=== PATIENT | female | born 1945 | race Caucasian/White ===

== ENCOUNTER 2017-05-12 07:50 | Emergency (ER) | payer MEDICARE, MEDICAID ==
[~2017-05-12] VITALS: Ht 162.6 cm; Wt 90.0 kg
[~2017-05-12 07:50] MED LIST: ASPI-1236; ASPI-867 PO; CLOP75TA16; CLOP75TA16 PO; COR6; DONE10TA11; ERTAPENEM IV; GLYB2.5T4; LEVO75CA2; LYR25; NORVASC PO; PARO-66; SITA25TA3; VIC
[2017-05-12] MEDS ORDERED: ACETAMINOPHEN 325MG TABLET PO ONE (09:15)
[2017-05-12 09:26] LABS: CLARITY URINE CLEAR (CLEAR); COLOR URINE YELLOW (YELLOW); KETONES URINE NEGATIVE (NEGATIVE); LEUKOCYTE ESTERASE URINE NEGATIVE (NEGATIVE); NITRITE URINE NEGATIVE (NEGATIVE); OCCULT BLOOD URINE NEGATIVE (NEGATIVE); PH URINE 5.5 (4.5-8.0); PROTEIN URINE NEGATIVE (NEGATIVE); SPECIFIC GRAVITY URINE 1.009 (1.005-1.030); UROBILINOGEN URINE 0.2 E.U./dL (0.2-1.0)
[2017-05-12 09:51] LABS: BASOPHILS % 1.2 % (0.0-2.0); EOSINOPHILS % 3.5 % (0.0-5.0); HEMATOCRIT. 40.9 % (36.0-48.0); HEMOGLOBIN. 13.9 g/dL (12.0-16.0); LYMPHOCYTES % 19.7 % (20.0-50.0); MEAN CORPUSCULAR HEMOGLOBIN 29.6 pg (28.0-32.0); MEAN CORPUSCULAR VOLUME 87.4 fL (81.0-99.0); MEAN PLATELET VOLUME 8.2 fl (7.4-10.4); MONOCYTES % 5.9 % (2.0-8.0); NEUTROPHILS % 69.7 % (40.0-76.0); PLATELET 331 x1000/uL (130-400); RED BLOOD CELL COUNT 4.69 mill/uL (4.2-5.4); RED CELL DISTRIBUTION WIDTH 13.1 % (11.6-14.6)
[2017-05-12 09:53] LABS: CHLORIDE 106 mEq/L (98-107); ETHANOL BLOOD < 10 mg/dL
[2017-05-12 09:54] LABS: PROTHROMBIN TIME 10.7 sec (9.4-11.6)
[2017-05-12 09:59] LABS: TROPONIN I < 0.02 ng/mL (0.00-0.04)
[2017-05-12 10:07] LABS: *AMPHETAMINES SCREEN URINE NEGATIVE (NEGATIVE); *BARBITURATES SCREEN URINE NEGATIVE (NEGATIVE); *BENZODIAZEPINES SCREEN URINE NEGATIVE (NEGATIVE); *COCAINE SCREEN URINE NEGATIVE (NEGATIVE)
[2017-05-12 10:08] LABS: CANNABINOID URINE SCREEN NEGATIVE (NEGATIVE); METHADONE URINE SCREEN NEGATIVE (NEGATIVE); OPIATES URINE SCREEN NEGATIVE (NEGATIVE); PHENCYCLIDINE URINE SCREEN NEGATIVE (NEGATIVE)
[2017-05-12 12:10] VITALS: BP 171/83
[2017-05-14] MEDS ORDERED: RISP0.2514 PO (17:48)
[2017-05-14] MEDS ORDERED: METF10002 PO (17:48)
[2017-05-14] MEDS ORDERED: GLIM1TAB2 PO (17:48)
[2017-05-14] MEDS ORDERED: REPA1TAB5 PO (17:48)
[2017-05-14] MEDS ORDERED: CARV6.2548 PO (17:48)
== END 2017-05-12 12:59 | disposition home or self-care (01) ==
LOC: ER 08:05
DX: R51 Headache (principal); R11.2 Nausea with vomiting, unspecified; E78.00 Pure hypercholesterolemia, unspecified; E11.65 Type 2 diabetes mellitus with hyperglycemia; Z86.73 Personal history of transient ischemic attack (TIA), and cerebral infarction without residual deficits; Z79.82 Long term (current) use of aspirin; Z79.01 Long term (current) use of anticoagulants
CPT/HCPCS: 36415; 70450; 71045; 80053; 80305; 81003; 83880; 84484; 85025; 85610; 93005; 99285; G0482

== ENCOUNTER 2017-05-17 20:25 | Inpatient (IN) | payer MEDICARE, MEDICAID ==
[~2017-05-17] VITALS: Ht 170.2 cm; Wt 80.7 kg
[2017-05-17 20:25] VITALS: BP_SYST 170; BP_SYST 176; BP_DIAS 68
[~2017-05-17 20:25] MED LIST changes: +CARV6.2548 PO; +GLIM1TAB2 PO; +METF10002 PO; +REPA1TAB5 PO; +RISP0.2514 PO
[2017-05-17 21:00] VITALS: BP 176/68
[2017-05-17] MEDS ORDERED: DEXTROSE 50% WATER 50ML SYRINGE IV PRN (22:30)
[2017-05-17] MEDS ORDERED: DOCUSATE SODIUM 100MG CAPSULE PO PRN (22:30)
[2017-05-17] MEDS ORDERED: NITROGLYCERIN 0.4MG TABLET SL SL PRN (22:30)
[2017-05-17] MEDS ORDERED: TRAMADOL 50MG TABLET PO PRN (22:30)
[2017-05-17] MEDS ORDERED: IPRATROPIUM/ALBUTEROL 0.5-3(2.5)MG/3ML NEB HHN PRN (22:30)
[2017-05-17] MEDS ORDERED: GUAIFENESIN 200MG/10ML SUGAR FREE UDC PO PRN (22:30)
[2017-05-17] MEDS ORDERED: ONDANSETRON HCL 4MG/2ML VIAL IV PRN (22:30)
[2017-05-17] MEDS ORDERED: MAGNESIUM/ALUMINUM HYDROXIDE/SIMETHICONE 30ML UDC PO PRN (22:30)
[2017-05-17] MEDS ORDERED: ZOLPIDEM TARTRATE 5MG TABLET PO PRN (22:30)
[2017-05-17] MEDS ORDERED: ACETAMINOPHEN 325MG TABLET PO PRN (22:30)
[2017-05-17] MEDS ORDERED: MORPHINE SULFATE 4 MG/ML CPJ (NOT FOR IM USE) IV PRN (23:38)
[2017-05-18 01:59] VITALS: BP 140/74
[2017-05-18] MEDS ORDERED: CEFTRIAXONE 1 G PREMIX 50 ML IV SCH (04:00)
[2017-05-18] MEDS: BLOOD SUGAR DIAGNOSTIC STRIP TEST SCH ×4 (06:28→21:15)
[2017-05-18] MEDS: LEVOTHYROXINE SODIUM 75MCG TABLET PO SCH (06:41)
[2017-05-18] MEDS: LACTULOSE 20G/30ML UDC PO SCH ×3 (06:41→22:00)
[2017-05-18] MEDS: INSULIN LISPRO 100 UNITS/ML SUBCUT SCH ×4 (06:46→21:42)
[2017-05-18 08:00] VITALS: BP 153/61
[2017-05-18] MEDS ORDERED: NA PHOS,M-B/NA PHOS,DI-BA ENEMA 118ML PR PRN (09:00)
[2017-05-18] MEDS: CLOPIDOGREL 75MG TABLET PO SCH (09:25)
[2017-05-18] MEDS: ASPIRIN 325MG EC TABLET PO SCH (09:26)
[2017-05-18] MEDS: CARVEDILOL 3.125 MG TABLET PO SCH ×2 (09:26→21:36)
[2017-05-18] MEDS: ENOXAPARIN 40MG/0.4ML SYR SUBCUT SCH (09:27)
[2017-05-18] MEDS: FAMOTIDINE 20MG/2ML VIAL IV SCH (09:27)
[2017-05-18] MEDS ORDERED: LEVOFLOXACIN 250MG TABLET PO SCH (11:00)
[2017-05-18] MEDS: CLONIDINE 0.1MG TABLET PO PRN (11:49)
[2017-05-18] MEDS: LISINOPRIL 20MG TABLET PO SCH ×2 (11:49→21:36)
[2017-05-18 13:24] VITALS: BP 137/64
[2017-05-18 20:00] VITALS: BP 138/69
[2017-05-18] MEDS: ATORVASTATIN CALCIUM 10MG TABLET PO SCH (21:36)
[2017-05-19] MEDS: BLOOD SUGAR DIAGNOSTIC STRIP TEST SCH ×5 (06:13→21:20)
[2017-05-19] MEDS: LEVOTHYROXINE SODIUM 75MCG TABLET PO SCH (06:13)
[2017-05-19] MEDS: LACTULOSE 20G/30ML UDC PO SCH ×3 (06:13→21:21)
[2017-05-19] MEDS: INSULIN LISPRO 100 UNITS/ML SUBCUT SCH ×4 (06:20→21:43)
[2017-05-19 08:00] VITALS: BP 164/59
[2017-05-19 08:19] LABS: BASOPHILS % 0.6 % (0.0-2.0); EOSINOPHILS % 5.2 % (0.0-5.0); HEMATOCRIT. 38.7 % (36.0-48.0); LYMPHOCYTES % 29.7 % (20.0-50.0); MEAN CORPUSCULAR HEMOGLOBIN 29.5 pg (28.0-32.0); MEAN CORPUSCULAR VOLUME 87.9 fL (81.0-99.0); MEAN PLATELET VOLUME 8.3 fl (7.4-10.4); MONOCYTES % 9.2 % (2.0-8.0); NEUTROPHILS % 55.3 % (40.0-76.0); PLATELET 306 x1000/uL (130-400); RED CELL DISTRIBUTION WIDTH 13.4 % (11.6-14.6)
[2017-05-19] MEDS: ASPIRIN 325MG EC TABLET PO SCH (08:40)
[2017-05-19] MEDS: CARVEDILOL 3.125 MG TABLET PO SCH ×2 (08:41→21:20)
[2017-05-19] MEDS: CLOPIDOGREL 75MG TABLET PO SCH (08:42)
[2017-05-19] MEDS: LISINOPRIL 20MG TABLET PO SCH ×2 (08:42→21:20)
[2017-05-19] MEDS: ENOXAPARIN 40MG/0.4ML SYR SUBCUT SCH (08:43)
[2017-05-19] MEDS: FAMOTIDINE 20MG/2ML VIAL IV SCH (09:00)
[2017-05-19 09:47] LABS: CHLORIDE 110 mEq/L (98-107)
[2017-05-19 10:11] LABS: PREALBUMIN 18.3 mg/dL (20.0-40.0)
[2017-05-19] MEDS: FAMOTIDINE 20MG TABLET PO SCH (12:40)
[2017-05-19 19:41] LABS: CLARITY URINE CLEAR (CLEAR); COLOR URINE YELLOW (YELLOW); KETONES URINE TRACE (NEGATIVE); LEUKOCYTE ESTERASE URINE 1+ (NEGATIVE); NITRITE URINE NEGATIVE (NEGATIVE); OCCULT BLOOD URINE NEGATIVE (NEGATIVE); PH URINE 5.5 (4.5-8.0); PROTEIN URINE TRACE (NEGATIVE); SPECIFIC GRAVITY URINE 1.025 (1.005-1.030)
[2017-05-19 20:00] VITALS: BP 159/60
[2017-05-19] MEDS: ATORVASTATIN CALCIUM 10MG TABLET PO SCH (21:20)
[2017-05-20] MEDS: BLOOD SUGAR DIAGNOSTIC STRIP TEST SCH ×4 (06:18→20:16)
[2017-05-20] MEDS: LACTULOSE 20G/30ML UDC PO SCH ×2 (06:36→14:00)
[2017-05-20] MEDS: LEVOTHYROXINE SODIUM 75MCG TABLET PO SCH (06:36)
[2017-05-20] MEDS: INSULIN LISPRO 100 UNITS/ML SUBCUT SCH ×4 (06:37→21:46)
[2017-05-20 07:23] LABS: BASOPHILS % 0.5 % (0.0-2.0); EOSINOPHILS % 5.8 % (0.0-5.0); HEMATOCRIT. 37.9 % (36.0-48.0); MEAN CORPUSCULAR VOLUME 87.7 fL (81.0-99.0); MEAN PLATELET VOLUME 8.2 fl (7.4-10.4); NEUTROPHILS % 55.7 % (40.0-76.0); PLATELET 317 x1000/uL (130-400); RED BLOOD CELL COUNT 4.32 mill/uL (4.2-5.4); RED CELL DISTRIBUTION WIDTH 12.9 % (11.6-14.6)
[2017-05-20 08:15] LABS: PHOSPHORUS 4.4 mg/dL (2.5-4.9)
[2017-05-20 08:28] VITALS: BP 130/61
[2017-05-20 08:28] LABS: FOLIC ACID (FOLATE) SERUM 16.1 ng/mL (>5.38)
[2017-05-20] MEDS: CLOPIDOGREL 75MG TABLET PO SCH (08:38)
[2017-05-20] MEDS: ASPIRIN 325MG EC TABLET PO SCH (08:38)
[2017-05-20] MEDS: ENOXAPARIN 40MG/0.4ML SYR SUBCUT SCH (08:38)
[2017-05-20] MEDS: FAMOTIDINE 20MG TABLET PO SCH (08:38)
[2017-05-20] MEDS: CARVEDILOL 3.125 MG TABLET PO SCH ×2 (08:38→20:10)
[2017-05-20] MEDS: LISINOPRIL 20MG TABLET PO SCH ×2 (08:39→20:11)
[2017-05-20] MEDS: CYANOCOBALAMIN 1000MCG/ML VIAL IM SCH (09:41)
[2017-05-20] MEDS ORDERED: LACTULOSE 20G/30ML UDC PO PRN (16:30)
[2017-05-20 20:00] VITALS: BP 171/76
[2017-05-20] MEDS: ATORVASTATIN CALCIUM 10MG TABLET PO SCH (20:11)
[2017-05-21] MEDS: LEVOTHYROXINE SODIUM 75MCG TABLET PO SCH (06:42)
[2017-05-21] MEDS: BLOOD SUGAR DIAGNOSTIC STRIP TEST SCH ×4 (06:44→21:13)
[2017-05-21] MEDS ORDERED: MIDAZOLAM HCL 2 MG/2 ML VIAL ONE (07:38)
[2017-05-21] MEDS ORDERED: FENTANYL CITRATE/PF 50MCG/ML 2ML VIAL ONE (07:38)
[2017-05-21] MEDS ORDERED: PROPOFOL 200MG/20ML VIAL IV ONE (07:38)
[2017-05-21] MEDS ORDERED: SUCCINYLCHOLINE CHLORIDE 200MG/10ML VIAL IV ONE (07:49)
[2017-05-21 08:00] VITALS: BP 149/62
[2017-05-21] MEDS: LISINOPRIL 20MG TABLET PO SCH ×2 (10:15→21:16)
[2017-05-21] MEDS: FAMOTIDINE 20MG TABLET PO SCH (10:15)
[2017-05-21] MEDS: ASPIRIN 325MG EC TABLET PO SCH (10:15)
[2017-05-21] MEDS: CLOPIDOGREL 75MG TABLET PO SCH (10:15)
[2017-05-21] MEDS: CARVEDILOL 3.125 MG TABLET PO SCH ×2 (10:16→21:16)
[2017-05-21] MEDS: ENOXAPARIN 40MG/0.4ML SYR SUBCUT SCH (10:16)
[2017-05-21] MEDS: INSULIN LISPRO 100 UNITS/ML SUBCUT SCH ×4 (10:28→21:21)
[2017-05-21] MEDS: CYANOCOBALAMIN 1000MCG/ML VIAL IM SCH (10:29)
[2017-05-21 20:00] VITALS: BP 181/78
[2017-05-21] MEDS: ATORVASTATIN CALCIUM 10MG TABLET PO SCH (21:15)
[2017-05-21] MEDS: CLONIDINE 0.1MG TABLET PO PRN (22:22)
[2017-05-21 23:45] VITALS: BP 153/54
[2017-05-22] MEDS: BLOOD SUGAR DIAGNOSTIC STRIP TEST SCH ×4 (06:28→21:56)
[2017-05-22] MEDS: LEVOTHYROXINE SODIUM 75MCG TABLET PO SCH (06:34)
[2017-05-22] MEDS: INSULIN LISPRO 100 UNITS/ML SUBCUT SCH ×4 (06:39→22:01)
[2017-05-22 08:00] VITALS: BP 147/49
[2017-05-22] MEDS: FAMOTIDINE 20MG TABLET PO SCH (08:46)
[2017-05-22] MEDS: CLOPIDOGREL 75MG TABLET PO SCH (08:46)
[2017-05-22] MEDS: ASPIRIN 325MG EC TABLET PO SCH (08:46)
[2017-05-22] MEDS: ENOXAPARIN 40MG/0.4ML SYR SUBCUT SCH (08:47)
[2017-05-22] MEDS: LISINOPRIL 20MG TABLET PO SCH ×2 (08:47→21:55)
[2017-05-22] MEDS: CYANOCOBALAMIN 1000MCG/ML VIAL IM SCH (08:51)
[2017-05-22] MEDS: CARVEDILOL 3.125 MG TABLET PO SCH ×2 (08:51→21:56)
[2017-05-22 20:00] VITALS: BP 153/74
[2017-05-22] MEDS: ATORVASTATIN CALCIUM 10MG TABLET PO SCH (21:55)
[2017-05-23] MEDS: BLOOD SUGAR DIAGNOSTIC STRIP TEST SCH ×4 (06:32→21:19)
[2017-05-23] MEDS: LEVOTHYROXINE SODIUM 75MCG TABLET PO SCH (06:34)
[2017-05-23] MEDS: INSULIN LISPRO 100 UNITS/ML SUBCUT SCH ×4 (06:37→21:19)
[2017-05-23 08:00] VITALS: BP 156/76
[2017-05-23] MEDS: CARVEDILOL 3.125 MG TABLET PO SCH ×2 (08:42→20:24)
[2017-05-23] MEDS: LISINOPRIL 20MG TABLET PO SCH ×2 (08:44→20:24)
[2017-05-23] MEDS: ASPIRIN 325MG EC TABLET PO SCH (08:44)
[2017-05-23] MEDS: CLOPIDOGREL 75MG TABLET PO SCH (08:44)
[2017-05-23] MEDS: FAMOTIDINE 20MG TABLET PO SCH (08:44)
[2017-05-23] MEDS: CYANOCOBALAMIN 1000MCG/ML VIAL IM SCH (08:45)
[2017-05-23] MEDS: ENOXAPARIN 40MG/0.4ML SYR SUBCUT SCH (08:46)
[2017-05-23 20:00] VITALS: BP 175/68
[2017-05-23] MEDS: ATORVASTATIN CALCIUM 10MG TABLET PO SCH (20:24)
[2017-05-23 22:00] VITALS: BP 178/70
[2017-05-23] MEDS: CLONIDINE 0.1MG TABLET PO PRN (22:00)
[2017-05-23 23:25] VITALS: BP 170/70
[2017-05-24 00:10] VITALS: BP 141/72
[2017-05-24] MEDS: BLOOD SUGAR DIAGNOSTIC STRIP TEST SCH ×4 (06:43→21:00)
[2017-05-24] MEDS: INSULIN LISPRO 100 UNITS/ML SUBCUT SCH ×4 (06:46→22:15)
[2017-05-24] MEDS: LEVOTHYROXINE SODIUM 75MCG TABLET PO SCH (06:47)
[2017-05-24 08:00] VITALS: BP 125/55
[2017-05-24] MEDS: ENOXAPARIN 40MG/0.4ML SYR SUBCUT SCH (09:59)
[2017-05-24] MEDS: LISINOPRIL 20MG TABLET PO SCH ×2 (09:59→21:00)
[2017-05-24] MEDS: CARVEDILOL 3.125 MG TABLET PO SCH ×2 (10:00→21:00)
[2017-05-24] MEDS: ASPIRIN 325MG EC TABLET PO SCH (10:00)
[2017-05-24] MEDS: CYANOCOBALAMIN 1000MCG/ML VIAL IM SCH (10:00)
[2017-05-24] MEDS: FAMOTIDINE 20MG TABLET PO SCH (10:00)
[2017-05-24] MEDS: CLOPIDOGREL 75MG TABLET PO SCH (10:00)
[2017-05-24 13:07] LABS: 25-HYDROXY VITAMIN D3 21 ng/mL (.)
[2017-05-24] MEDS: ERGOCALCIFEROL 50000UNITS CAPSULE PO SCH (14:56)
[2017-05-24 20:00] VITALS: BP 161/59
[2017-05-24] MEDS: ATORVASTATIN CALCIUM 10MG TABLET PO SCH (21:00)
[2017-05-25] MEDS: INSULIN LISPRO 100 UNITS/ML SUBCUT SCH ×4 (06:00→22:00)
[2017-05-25] MEDS: LEVOTHYROXINE SODIUM 75MCG TABLET PO SCH (06:00)
[2017-05-25] MEDS: BLOOD SUGAR DIAGNOSTIC STRIP TEST SCH ×4 (06:00→21:00)
[2017-05-25 07:24] LABS: BASOPHILS % 0.7 % (0.0-2.0); EOSINOPHILS % 4.7 % (0.0-5.0); HEMATOCRIT. 39.2 % (36.0-48.0); HEMOGLOBIN. 13.6 g/dL (12.0-16.0); LYMPHOCYTES % 32.4 % (20.0-50.0); MEAN CORPUSCULAR HEMOGLOBIN 30.2 pg (28.0-32.0); MEAN CORPUSCULAR VOLUME 86.9 fL (81.0-99.0); MEAN PLATELET VOLUME 8.5 fl (7.4-10.4); MONOCYTES % 7.8 % (2.0-8.0); NEUTROPHILS % 54.4 % (40.0-76.0); PLATELET 303 x1000/uL (130-400); RED BLOOD CELL COUNT 4.51 mill/uL (4.2-5.4); RED CELL DISTRIBUTION WIDTH 13.4 % (11.6-14.6)
[2017-05-25 07:35] LABS: CHLORIDE 110 mEq/L (98-107)
[2017-05-25 08:00] VITALS: BP 131/71
[2017-05-25] MEDS: FAMOTIDINE 20MG TABLET PO SCH (08:10)
[2017-05-25] MEDS: CLOPIDOGREL 75MG TABLET PO SCH (08:10)
[2017-05-25] MEDS: ASPIRIN 325MG EC TABLET PO SCH (08:10)
[2017-05-25] MEDS: CYANOCOBALAMIN 1000MCG/ML VIAL IM SCH (08:10)
[2017-05-25] MEDS: ENOXAPARIN 40MG/0.4ML SYR SUBCUT SCH (08:11)
[2017-05-25] MEDS: LISINOPRIL 20MG TABLET PO SCH ×2 (08:11→22:00)
[2017-05-25] MEDS: CARVEDILOL 3.125 MG TABLET PO SCH ×2 (08:11→22:01)
[2017-05-25] MEDS: LACTULOSE 20G/30ML UDC PO SCH ×3 (15:40→20:34)
[2017-05-25] MEDS ORDERED: NA PHOS,M-B/NA PHOS,DI-BA ENEMA 118ML PR NR (16:00)
[2017-05-25] MEDS: DOCUSATE SODIUM 100MG CAPSULE PO SCH (17:00)
[2017-05-25 20:00] VITALS: BP 168/66
[2017-05-25] MEDS: POLYETHYLENE GLYCOL 3350 (17GM) 1 DOSE PACK PO SCH (20:36)
[2017-05-25] MEDS: ATORVASTATIN CALCIUM 10MG TABLET PO SCH (22:00)
[2017-05-26] MEDS: BLOOD SUGAR DIAGNOSTIC STRIP TEST SCH ×4 (06:01→20:51)
[2017-05-26] MEDS: INSULIN LISPRO 100 UNITS/ML SUBCUT SCH ×4 (06:01→22:25)
[2017-05-26] MEDS: LEVOTHYROXINE SODIUM 75MCG TABLET PO SCH (06:01)
[2017-05-26 08:00] VITALS: BP 141/53
[2017-05-26] MEDS: CARVEDILOL 3.125 MG TABLET PO SCH ×2 (09:00→20:35)
[2017-05-26] MEDS: ASPIRIN 325MG EC TABLET PO SCH (09:58)
[2017-05-26] MEDS: CLOPIDOGREL 75MG TABLET PO SCH (09:58)
[2017-05-26] MEDS: LISINOPRIL 20MG TABLET PO SCH ×2 (09:59→22:19)
[2017-05-26] MEDS: FAMOTIDINE 20MG TABLET PO SCH (09:59)
[2017-05-26] MEDS: DOCUSATE SODIUM 100MG CAPSULE PO SCH ×2 (09:59→16:48)
[2017-05-26] MEDS: ENOXAPARIN 40MG/0.4ML SYR SUBCUT SCH (10:00)
[2017-05-26 20:00] VITALS: BP 170/86
[2017-05-26] MEDS: ATORVASTATIN CALCIUM 10MG TABLET PO SCH (20:34)
[2017-05-26] MEDS: POLYETHYLENE GLYCOL 3350 (17GM) 1 DOSE PACK PO SCH (20:35)
[2017-05-27] MEDS: BLOOD SUGAR DIAGNOSTIC STRIP TEST SCH ×4 (06:23→20:40)
[2017-05-27] MEDS: LEVOTHYROXINE SODIUM 75MCG TABLET PO SCH (06:23)
[2017-05-27] MEDS: INSULIN LISPRO 100 UNITS/ML SUBCUT SCH ×4 (06:27→21:11)
[2017-05-27 08:00] VITALS: BP 132/52
[2017-05-27] MEDS: CARVEDILOL 3.125 MG TABLET PO SCH ×2 (09:00→20:36)
[2017-05-27] MEDS: DOCUSATE SODIUM 100MG CAPSULE PO SCH ×2 (09:22→17:30)
[2017-05-27] MEDS: FAMOTIDINE 20MG TABLET PO SCH (09:24)
[2017-05-27] MEDS: CLOPIDOGREL 75MG TABLET PO SCH (09:24)
[2017-05-27] MEDS: LISINOPRIL 20MG TABLET PO SCH ×2 (09:24→20:37)
[2017-05-27] MEDS: ASPIRIN 325MG EC TABLET PO SCH (09:24)
[2017-05-27] MEDS: ENOXAPARIN 40MG/0.4ML SYR SUBCUT SCH (09:25)
[2017-05-27 20:00] VITALS: BP 146/56
[2017-05-27] MEDS: ATORVASTATIN CALCIUM 10MG TABLET PO SCH (20:36)
[2017-05-27] MEDS: POLYETHYLENE GLYCOL 3350 (17GM) 1 DOSE PACK PO SCH (20:37)
[2017-05-28] MEDS: BLOOD SUGAR DIAGNOSTIC STRIP TEST SCH ×4 (06:06→21:13)
[2017-05-28] MEDS: LEVOTHYROXINE SODIUM 75MCG TABLET PO SCH (06:06)
[2017-05-28] MEDS: INSULIN LISPRO 100 UNITS/ML SUBCUT SCH ×4 (06:48→21:20)
[2017-05-28 08:00] VITALS: BP 138/58
[2017-05-28] MEDS: CARVEDILOL 3.125 MG TABLET PO SCH ×2 (09:00→20:30)
[2017-05-28] MEDS: FAMOTIDINE 20MG TABLET PO SCH (09:24)
[2017-05-28] MEDS: DOCUSATE SODIUM 100MG CAPSULE PO SCH ×2 (09:24→17:34)
[2017-05-28] MEDS: CLOPIDOGREL 75MG TABLET PO SCH (09:24)
[2017-05-28] MEDS: ASPIRIN 325MG EC TABLET PO SCH (09:24)
[2017-05-28] MEDS: ENOXAPARIN 40MG/0.4ML SYR SUBCUT SCH (09:25)
[2017-05-28] MEDS: LISINOPRIL 20MG TABLET PO SCH ×2 (09:26→20:30)
[2017-05-28 20:00] VITALS: BP 164/68
[2017-05-28] MEDS: ATORVASTATIN CALCIUM 10MG TABLET PO SCH (20:30)
[2017-05-28] MEDS: POLYETHYLENE GLYCOL 3350 (17GM) 1 DOSE PACK PO SCH (20:31)
[2017-05-28 21:43] VITALS: BP 135/63
[2017-05-29] MEDS: BLOOD SUGAR DIAGNOSTIC STRIP TEST SCH ×4 (06:11→21:57)
[2017-05-29] MEDS: LEVOTHYROXINE SODIUM 75MCG TABLET PO SCH (06:41)
[2017-05-29] MEDS: INSULIN LISPRO 100 UNITS/ML SUBCUT SCH ×4 (06:43→20:45)
[2017-05-29 07:07] LABS: BASOPHILS % 0.6 % (0.0-2.0); EOSINOPHILS % 4.3 % (0.0-5.0); HEMATOCRIT. 38.4 % (36.0-48.0); HEMOGLOBIN. 13.1 g/dL (12.0-16.0); LYMPHOCYTES % 35.8 % (20.0-50.0); MEAN CORPUSCULAR VOLUME 88.1 fL (81.0-99.0); MEAN PLATELET VOLUME 8.8 fl (7.4-10.4); MONOCYTES % 8.9 % (2.0-8.0); NEUTROPHILS % 50.4 % (40.0-76.0); PLATELET 267 x1000/uL (130-400); RED BLOOD CELL COUNT 4.36 mill/uL (4.2-5.4); RED CELL DISTRIBUTION WIDTH 13.2 % (11.6-14.6)
[2017-05-29 07:32] LABS: CHLORIDE 111 mEq/L (98-107)
[2017-05-29 07:48] LABS: PHOSPHORUS 4.3 mg/dL (2.5-4.9)
[2017-05-29 08:25] VITALS: BP 169/72
[2017-05-29] MEDS: DOCUSATE SODIUM 100MG CAPSULE PO SCH ×2 (09:11→17:45)
[2017-05-29] MEDS: ASPIRIN 325MG EC TABLET PO SCH (09:12)
[2017-05-29] MEDS: CLOPIDOGREL 75MG TABLET PO SCH (09:12)
[2017-05-29] MEDS: CARVEDILOL 3.125 MG TABLET PO SCH ×2 (09:13→20:39)
[2017-05-29] MEDS: FAMOTIDINE 20MG TABLET PO SCH (09:14)
[2017-05-29] MEDS: LISINOPRIL 20MG TABLET PO SCH ×2 (09:14→20:39)
[2017-05-29] MEDS: ENOXAPARIN 40MG/0.4ML SYR SUBCUT SCH (09:20)
[2017-05-29 20:00] VITALS: BP 173/63
[2017-05-29] MEDS: ATORVASTATIN CALCIUM 10MG TABLET PO SCH (20:39)
[2017-05-29] MEDS: POLYETHYLENE GLYCOL 3350 (17GM) 1 DOSE PACK PO SCH (20:39)
[2017-05-29 21:50] VITALS: BP 158/63
[2017-05-30] MEDS: LEVOTHYROXINE SODIUM 75MCG TABLET PO SCH (06:45)
[2017-05-30] MEDS: INSULIN LISPRO 100 UNITS/ML SUBCUT SCH ×4 (06:48→21:02)
[2017-05-30] MEDS: BLOOD SUGAR DIAGNOSTIC STRIP TEST SCH ×4 (06:48→20:56)
[2017-05-30 08:27] VITALS: BP 143/63
[2017-05-30] MEDS: FAMOTIDINE 20MG TABLET PO SCH (08:56)
[2017-05-30] MEDS: DOCUSATE SODIUM 100MG CAPSULE PO SCH ×2 (08:56→17:07)
[2017-05-30] MEDS: ENOXAPARIN 40MG/0.4ML SYR SUBCUT SCH (08:56)
[2017-05-30] MEDS: ASPIRIN 325MG EC TABLET PO SCH (08:57)
[2017-05-30] MEDS: LISINOPRIL 20MG TABLET PO SCH ×2 (08:57→20:55)
[2017-05-30] MEDS: CARVEDILOL 3.125 MG TABLET PO SCH ×2 (08:57→20:56)
[2017-05-30] MEDS: CLOPIDOGREL 75MG TABLET PO SCH (08:57)
[2017-05-30 20:00] VITALS: BP 164/88
[2017-05-30] MEDS: POLYETHYLENE GLYCOL 3350 (17GM) 1 DOSE PACK PO SCH (20:55)
[2017-05-30] MEDS: ATORVASTATIN CALCIUM 10MG TABLET PO SCH (20:55)
[2017-05-30 22:30] VITALS: BP 157/67
[2017-05-31] MEDS: BLOOD SUGAR DIAGNOSTIC STRIP TEST SCH ×4 (06:25→21:34)
[2017-05-31] MEDS: LEVOTHYROXINE SODIUM 75MCG TABLET PO SCH (06:27)
[2017-05-31] MEDS: INSULIN LISPRO 100 UNITS/ML SUBCUT SCH ×4 (06:32→21:41)
[2017-05-31 08:00] VITALS: BP 147/70
[2017-05-31] MEDS: CARVEDILOL 3.125 MG TABLET PO SCH ×2 (09:36→21:34)
[2017-05-31] MEDS: FAMOTIDINE 20MG TABLET PO SCH (09:36)
[2017-05-31] MEDS: CLOPIDOGREL 75MG TABLET PO SCH (09:36)
[2017-05-31] MEDS: LISINOPRIL 20MG TABLET PO SCH ×2 (09:37→21:33)
[2017-05-31] MEDS: ASPIRIN 325MG EC TABLET PO SCH (09:37)
[2017-05-31] MEDS: DOCUSATE SODIUM 100MG CAPSULE PO SCH ×2 (09:37→18:06)
[2017-05-31] MEDS: ENOXAPARIN 40MG/0.4ML SYR SUBCUT SCH (09:39)
[2017-05-31] MEDS: ERGOCALCIFEROL 50000UNITS CAPSULE PO SCH (14:52)
[2017-05-31 20:00] VITALS: BP 172/66
[2017-05-31] MEDS: ATORVASTATIN CALCIUM 10MG TABLET PO SCH (21:31)
[2017-05-31] MEDS: POLYETHYLENE GLYCOL 3350 (17GM) 1 DOSE PACK PO SCH (21:34)
[2017-06-01] MEDS: BLOOD SUGAR DIAGNOSTIC STRIP TEST SCH ×2 (06:32→11:13)
[2017-06-01] MEDS: LEVOTHYROXINE SODIUM 75MCG TABLET PO SCH (06:32)
[2017-06-01] MEDS: INSULIN LISPRO 100 UNITS/ML SUBCUT SCH ×2 (06:36→11:59)
[2017-06-01 08:02] VITALS: BP 144/54
[2017-06-01] MEDS: DOCUSATE SODIUM 100MG CAPSULE PO SCH (08:29)
[2017-06-01] MEDS: ASPIRIN 325MG EC TABLET PO SCH (08:29)
[2017-06-01] MEDS: CLOPIDOGREL 75MG TABLET PO SCH (08:29)
[2017-06-01] MEDS: FAMOTIDINE 20MG TABLET PO SCH (08:29)
[2017-06-01] MEDS: ENOXAPARIN 40MG/0.4ML SYR SUBCUT SCH (08:30)
[2017-06-01] MEDS: LISINOPRIL 20MG TABLET PO SCH (08:30)
[2017-06-01] MEDS: CARVEDILOL 3.125 MG TABLET PO SCH (08:30)
[2017-06-01 09:49] VITALS: BP 144/54
== END 2017-06-01 14:45 | disposition home or self-care (01) | DRG 64 ==
PROVIDERS: ADMIT Physical Medicine & Rehabilitation Spinal Cord Injury Medicine; ATTEND Internal Medicine
DX: I63.9 Cerebral infarction, unspecified (principal); G82.50 Quadriplegia, unspecified; G92 Toxic encephalopathy; N39.0 Urinary tract infection, site not specified; E87.5 Hyperkalemia; E11.9 Type 2 diabetes mellitus without complications; E83.51 Hypocalcemia; R47.01 Aphasia; F03.90 Unspecified dementia, unspecified severity, without behavioral disturbance, psychotic disturbance, mood disturbance, and anxiety; E03.9 Hypothyroidism, unspecified; E78.00 Pure hypercholesterolemia, unspecified; F32.9 Major depressive disorder, single episode, unspecified; H02.401 Unspecified ptosis of right eyelid; H54.7 Unspecified visual loss; R47.02 Dysphasia; R47.1 Dysarthria and anarthria; R26.9 Unspecified abnormalities of gait and mobility; R53.81 Other malaise; G31.84 Mild cognitive impairment of uncertain or unknown etiology; I10 Essential (primary) hypertension; F06.31 Mood disorder due to known physiological condition with depressive features; Z83.3 Family history of diabetes mellitus; Z82.49 Family history of ischemic heart disease and other diseases of the circulatory system; Z79.4 Long term (current) use of insulin; Z86.73 Personal history of transient ischemic attack (TIA), and cerebral infarction without residual deficits; H54.40 Blindness, one eye, unspecified eye; M79.609 Pain in unspecified limb; E55.9 Vitamin D deficiency, unspecified
CPT/HCPCS: 36415; 73080; 73090; 73110; 73562; 74018; 80048; 80053; 81003; 82306; 82607; 82728; 82746; 82962; 83540; 83550; 83735; 84100; 84134; 84443; 84630; 85025; 87086; 92523; 92610; 93306; 93970; 97110; 97112; 97116; 97127; 97163; 97166; 97530; 97535; G0515; J0330; J0696; J1650; J1815; J2250; J2704; J3010; J3420; J3490

== ENCOUNTER 2018-07-24 16:59 | Emergency (ER) | payer MEDICARE, MEDICAID ==
[~2018-07-24] VITALS: Ht 165.1 cm; Wt 69.0 kg
[~2018-07-24 16:59] MED LIST changes: +ASA5EC PO; -ASPI-1236; -ASPI-867 PO; -CLOP75TA16; -CLOP75TA16 PO; +CLOP75TA4 PO; -COR6; -DONE10TA11; -ERTAPENEM IV; -GLYB2.5T4; -LEVO75CA2; -METF10002 PO; -NORVASC PO; -PARO-66; -REPA1TAB5 PO; -VIC
[2018-07-24] MEDS ORDERED: LIDOCAINE 1%/EPI 1:100,000 10 ML VIAL IJ ONE (18:30)
[2018-07-24] MEDS ORDERED: BACITRACIN ZINC OINT UDPKT TOP ONE (18:30)
[2018-07-24 18:52] LABS: BASOPHILS % 0.6 % (0.0-2.0); EOSINOPHILS % 2.1 % (0.0-5.0); HEMATOCRIT. 41.9 % (36.0-48.0); HEMOGLOBIN. 14.3 g/dL (12.0-16.0); LYMPHOCYTES % 19.4 % (20.0-50.0); MEAN CORPUSCULAR HEMOGLOBIN 29.8 pg (28.0-32.0); MEAN CORPUSCULAR VOLUME 87.3 fL (81.0-99.0); MEAN PLATELET VOLUME 7.6 fl (7.4-10.4); MONOCYTES % 5.7 % (2.0-8.0); NEUTROPHILS % 72.2 % (40.0-76.0); PLATELET 380 x1000/uL (130-400); RED CELL DISTRIBUTION WIDTH 13.2 % (11.6-14.6)
[2018-07-24 18:53] LABS: CHLORIDE 106 mEq/L (98-107)
[2018-07-24] MEDS ORDERED: LIDOCAINE HCL/EPINEPHRINE 1%-EPI 1:100,000 20 ML VIAL ONE (19:29)
[2018-07-24 20:47] LABS: CLARITY URINE CLEAR (CLEAR); COLOR URINE YELLOW (YELLOW); KETONES URINE NEGATIVE (NEGATIVE); LEUKOCYTE ESTERASE URINE 1+ (NEGATIVE); NITRITE URINE POSITIVE (NEGATIVE); OCCULT BLOOD URINE NEGATIVE (NEGATIVE); PH URINE 6.5 (4.5-8.0); PROTEIN URINE NEGATIVE (NEGATIVE); SPECIFIC GRAVITY URINE 1.011 (1.005-1.030); UROBILINOGEN URINE 0.2 E.U./dL (0.2-1.0)
[2018-07-24 22:14] VITALS: BP 173/63
== END 2018-07-24 22:18 | disposition home or self-care (01) ==
LOC: ER 16:59
DX: S01.111A Laceration without foreign body of right eyelid and periocular area, initial encounter (principal); N39.0 Urinary tract infection, site not specified; E11.9 Type 2 diabetes mellitus without complications; E78.00 Pure hypercholesterolemia, unspecified; R90.82 White matter disease, unspecified; W01.0XXA Fall on same level from slipping, tripping and stumbling without subsequent striking against object, initial encounter; Y93.89 Activity, other specified; Y92.89 Other specified places as the place of occurrence of the external cause; Y99.8 Other external cause status; I10 Essential (primary) hypertension; Z86.73 Personal history of transient ischemic attack (TIA), and cerebral infarction without residual deficits; Z79.82 Long term (current) use of aspirin; Z79.899 Other long term (current) drug therapy
CPT/HCPCS: 12013; 36415; 70450; 71045; 73562; 80053; 81003; 83880; 84484; 85025; 93005; 99284; J3490

== ENCOUNTER 2019-08-27 07:22 | Inpatient (IN) | payer MEDICARE, MEDICAID ==
[~2019-08-27] VITALS: Ht 157.5 cm; Wt 66.4 kg
[~2019-08-27 07:22] MED LIST changes: -ASA5EC PO; +ASPI325T85 PO; +GLIM1TAB PO; -GLIM1TAB2 PO
[2019-08-27 09:03] LABS: BASOPHILS % 0.4 % (0.0-2.0); HEMATOCRIT. 39.3 % (36.0-48.0); HEMOGLOBIN. 13.7 g/dL (12.0-16.0); LYMPHOCYTES % 10.6 % (20.0-50.0); MEAN CORPUSCULAR HEMOGLOBIN 30.9 pg (28.0-32.0); MEAN CORPUSCULAR VOLUME 88.7 fL (81.0-99.0); MONOCYTES % 7.2 % (2.0-8.0); NEUTROPHILS % 81.8 % (40.0-76.0); RED BLOOD CELL COUNT 4.43 mill/uL (4.2-5.4); RED CELL DISTRIBUTION WIDTH 13.6 % (11.6-14.6)
[2019-08-27 09:05] LABS: CHLORIDE 100 mEq/L (98-107)
[2019-08-27 09:49] LABS: D-DIMER 1.2 mg/L FEU (<0.50); INR 1.1; PROTHROMBIN TIME 11.5 sec (9.6-11.0)
[2019-08-27 09:58] LABS: CLARITY URINE CLOUDY (CLEAR); COLOR URINE DARK YELLOW (YELLOW); KETONES URINE TRACE (NEGATIVE); LEUKOCYTE ESTERASE URINE 2+ (NEGATIVE); NITRITE URINE NEGATIVE (NEGATIVE); OCCULT BLOOD URINE 1+ (NEGATIVE); PROTEIN URINE 1+ (NEGATIVE); SPECIFIC GRAVITY URINE 1.024 (1.005-1.030)
[2019-08-27] MEDS ORDERED: CEFTRIAXONE 1 G PREMIX 50 ML IV ONE (10:15)
[2019-08-27 10:24] LABS: PLATELET 202 x1000/uL (130-400)
[2019-08-27] MEDS ORDERED: AZITHROMYCIN 500 MG in DEXT 5% WATER 250 ML IV SCH ×4 (11:30)
[2019-08-27] MEDS ORDERED: DIPHENHYDRAMINE 50MG/ML VIAL IV PRN (11:30)
[2019-08-27] MEDS ORDERED: ONDANSETRON HCL 4MG/2ML INJ IV PRN (11:30)
[2019-08-27 13:05] LABS: PHOSPHORUS 4.3 mg/dL (2.5-4.9)
[2019-08-27] MEDS ORDERED: DEXTROSE 50% WATER 50ML SYRINGE IV PRN (15:00)
[2019-08-27] MEDS: BLOOD SUGAR DIAGNOSTIC STRIP TEST SCH ×3 (15:13→21:00)
[2019-08-27] MEDS: INSULIN LISPRO (LOW DOSE) 100 UNITS/ML SUBCUT SCH ×3 (15:15→22:37)
[2019-08-27 17:22] LABS: CREATINE KINASE 353 IU/L (26-192)
[2019-08-27 17:24] LABS: CREATINE KINASE MB FRACTION < 1.0 ng/mL (0.5-3.6)
[2019-08-27] MEDS: CLONIDINE 0.1MG TABLET PO PRN (19:02)
[2019-08-27 20:26] VITALS: BP 155/65
[2019-08-27] MEDS: ACETAMINOPHEN 325MG TABLET PO PRN (22:39)
[2019-08-27 23:28] LABS: CREATINE KINASE MB FRACTION 2.4 ng/mL (0.5-3.6)
[2019-08-28] VITALS (7 sets, daily range): BP systolic 120–152; BP diastolic 54–69
[2019-08-28 06:36] LABS: BASOPHILS % 0.2 % (0.0-2.0); HEMATOCRIT. 34.8 % (36.0-48.0); LYMPHOCYTES % 9.8 % (20.0-50.0); MEAN CORPUSCULAR HEMOGLOBIN 30.2 pg (28.0-32.0); MEAN CORPUSCULAR VOLUME 87.9 fL (81.0-99.0); MEAN PLATELET VOLUME 8.4 fl (7.4-10.4); MONOCYTES % 4.3 % (2.0-8.0); NEUTROPHILS % 85.7 % (40.0-76.0); PLATELET 185 x1000/uL (130-400); RED BLOOD CELL COUNT 3.96 mill/uL (4.2-5.4); RED CELL DISTRIBUTION WIDTH 13.8 % (11.6-14.6)
[2019-08-28] MEDS: BLOOD SUGAR DIAGNOSTIC STRIP TEST SCH ×4 (06:51→21:00)
[2019-08-28 07:35] LABS: CHLORIDE 101 mEq/L (98-107)
[2019-08-28 07:42] LABS: LDL CHOLESTEROL 40 mg/dL (5-100)
[2019-08-28 07:44] LABS: HDL CHOLESTEROL 38 mg/dL (40-59)
[2019-08-28] MEDS: INSULIN LISPRO (LOW DOSE) 100 UNITS/ML SUBCUT SCH ×4 (08:10→21:00)
[2019-08-28] MEDS ORDERED: POTASSIUM CHLORIDE 20MEQ TABLET SR PO SCH (09:45)
[2019-08-28] MEDS ORDERED: CEFTRIAXONE 1 G PREMIX 50 ML IV SCH (11:00)
[2019-08-28] MEDS: AZITHROMYCIN 500 MG in DEXT 5% WATER 250 ML IV SCH (15:02)
[2019-08-28] MEDS: CEFTRIAXONE 1 G PREMIX 50 ML IV SCH (16:18)
[2019-08-28] MEDS: MAGNESIUM GLUCONATE 500MG TABLET PO SCH (16:18)
[2019-08-28] MEDS: ENOXAPARIN 40MG/0.4ML SYR SUBCUT SCH (17:00)
[2019-08-28] MEDS: ACETAMINOPHEN 325MG TABLET PO PRN (18:12)
[2019-08-28] MEDS: CARVEDILOL 6.25 MG TABLET PO SCH (22:03)
[2019-08-29] VITALS: BP 148/66
[2019-08-29] MEDS: ALBUTEROL 6.7GM HFA INHALER ORI SCH ×4 (00:44→18:41)
[2019-08-29 04:00] VITALS: BP 143/60
[2019-08-29 07:22] LABS: CHLORIDE 104 mEq/L (98-107)
[2019-08-29] MEDS: BLOOD SUGAR DIAGNOSTIC STRIP TEST SCH ×4 (07:30→21:40)
[2019-08-29] MEDS: INSULIN LISPRO (LOW DOSE) 100 UNITS/ML SUBCUT SCH ×4 (07:30→21:44)
[2019-08-29 08:00] VITALS: BP 133/49
[2019-08-29] MEDS: RISPERIDONE 0.25MG TABLET PO SCH ×2 (09:18→17:28)
[2019-08-29] MEDS: ASPIRIN 325MG EC TABLET PO SCH (09:18)
[2019-08-29] MEDS: CLOPIDOGREL 75MG TABLET PO SCH (09:19)
[2019-08-29] MEDS: CARVEDILOL 6.25 MG TABLET PO SCH ×3 (09:19→21:44)
[2019-08-29] MEDS: MAGNESIUM GLUCONATE 500MG TABLET PO SCH (09:19)
[2019-08-29] MEDS: GLIMEPIRIDE 1MG TABLET PO SCH (09:20)
[2019-08-29] MEDS: ACETAMINOPHEN 325MG TABLET PO PRN ×2 (10:10→17:30)
[2019-08-29 11:00] LABS: BASOPHILS % 0.1 % (0.0-2.0); HEMATOCRIT. 35.3 % (36.0-48.0); HEMOGLOBIN. 12.1 g/dL (12.0-16.0); LYMPHOCYTES % 11.8 % (20.0-50.0); MEAN CORPUSCULAR HEMOGLOBIN 30.2 pg (28.0-32.0); MEAN CORPUSCULAR VOLUME 87.8 fL (81.0-99.0); MEAN PLATELET VOLUME 8.3 fl (7.4-10.4); MONOCYTES % 7.6 % (2.0-8.0); NEUTROPHILS % 80.5 % (40.0-76.0); PLATELET 180 x1000/uL (130-400); RED BLOOD CELL COUNT 4.02 mill/uL (4.2-5.4); RED CELL DISTRIBUTION WIDTH 13.8 % (11.6-14.6)
[2019-08-29 12:00] VITALS: BP 129/72
[2019-08-29] MEDS: AZITHROMYCIN 500 MG in DEXT 5% WATER 250 ML IV SCH (12:41)
[2019-08-29] MEDS: DEXAMETHASONE 4MG TABLET PO SCH (12:49)
[2019-08-29 16:00] VITALS: BP 104/59
[2019-08-29] MEDS: CEFTRIAXONE 1 G PREMIX 50 ML IV SCH (17:28)
[2019-08-29] MEDS: ENOXAPARIN 40MG/0.4ML SYR SUBCUT SCH (17:28)
[2019-08-29 20:00] VITALS: BP 126/50
[2019-08-30] VITALS: BP 125/59
[2019-08-30 04:00] VITALS: BP 116/63
[2019-08-30] MEDS: ALBUTEROL 6.7GM HFA INHALER ORI SCH ×5 (06:07→23:48)
[2019-08-30] MEDS: BLOOD SUGAR DIAGNOSTIC STRIP TEST SCH ×4 (07:40→21:31)
[2019-08-30 08:00] VITALS: BP 136/61
[2019-08-30] MEDS: GLIMEPIRIDE 1MG TABLET PO SCH (08:38)
[2019-08-30] MEDS: MAGNESIUM GLUCONATE 500MG TABLET PO SCH (08:38)
[2019-08-30] MEDS: CARVEDILOL 6.25 MG TABLET PO SCH ×2 (08:39→21:31)
[2019-08-30] MEDS: ASPIRIN 325MG EC TABLET PO SCH (08:39)
[2019-08-30] MEDS: CLOPIDOGREL 75MG TABLET PO SCH (08:39)
[2019-08-30] MEDS: RISPERIDONE 0.25MG TABLET PO SCH ×2 (08:39→18:06)
[2019-08-30] MEDS: DEXAMETHASONE 4MG TABLET PO SCH (08:39)
[2019-08-30] MEDS: INSULIN LISPRO (LOW DOSE) 100 UNITS/ML SUBCUT SCH ×4 (08:41→22:30)
[2019-08-30 12:00] VITALS: BP 114/69
[2019-08-30] MEDS: AZITHROMYCIN 500 MG in DEXT 5% WATER 250 ML IV SCH (13:48)
[2019-08-30] MEDS ORDERED: REMDESIVIR 200 MG in SODIUM CHLORIDE 0.9% 250 ML IV NR (14:00)
[2019-08-30] MEDS ORDERED: VANCOMYCIN 1250MG in DEXTROSE 5% WATER 250ML IV NR (15:00)
[2019-08-30 16:00] VITALS: BP 148/69
[2019-08-30] MEDS: CEFTRIAXONE 1 G PREMIX 50 ML IV SCH (17:20)
[2019-08-30] MEDS: ENOXAPARIN 40MG/0.4ML SYR SUBCUT SCH (18:06)
[2019-08-30 20:00] VITALS: BP 162/82
[2019-08-31] VITALS: BP 138/69
[2019-08-31] MEDS ORDERED: VANCOMYCIN 500 MG PREMIX 100 ML IV SCH (06:00)
[2019-08-31] MEDS: BLOOD SUGAR DIAGNOSTIC STRIP TEST SCH ×4 (07:40→21:29)
[2019-08-31 07:45] LABS: CHLORIDE 107 mEq/L (98-107)
[2019-08-31] MEDS: INSULIN LISPRO (LOW DOSE) 100 UNITS/ML SUBCUT SCH ×4 (08:10→21:41)
[2019-08-31 08:11] VITALS: BP 145/64
[2019-08-31] MEDS: MAGNESIUM GLUCONATE 500MG TABLET PO SCH (09:14)
[2019-08-31] MEDS: ASPIRIN 325MG EC TABLET PO SCH (09:14)
[2019-08-31] MEDS: GLIMEPIRIDE 1MG TABLET PO SCH (09:14)
[2019-08-31] MEDS: CARVEDILOL 6.25 MG TABLET PO SCH (09:14)
[2019-08-31] MEDS: CLOPIDOGREL 75MG TABLET PO SCH (09:14)
[2019-08-31] MEDS: RISPERIDONE 0.25MG TABLET PO SCH ×2 (09:14→17:01)
[2019-08-31] MEDS: DEXAMETHASONE 4MG TABLET PO SCH (11:18)
[2019-08-31] MEDS: ALBUTEROL 6.7GM HFA INHALER ORI SCH ×2 (11:19→17:03)
[2019-08-31] MEDS: AZITHROMYCIN 500 MG in DEXT 5% WATER 250 ML IV SCH (11:31)
[2019-08-31 12:00] VITALS: BP 104/65
[2019-08-31] MEDS: REMDESIVIR 100 MG in SODIUM CHLORIDE 0.9% 250 ML IV SCH (13:37)
[2019-08-31 16:00] VITALS: BP 115/61
[2019-08-31] MEDS: AMLODIPINE 5MG TABLET PO SCH ×2 (17:00→21:17)
[2019-08-31] MEDS: CEFTRIAXONE 1 G PREMIX 50 ML IV SCH (17:01)
[2019-08-31] MEDS: ENOXAPARIN 40MG/0.4ML SYR SUBCUT SCH (17:02)
[2019-08-31 20:00] VITALS: BP 152/68
[2019-09-01] VITALS (7 sets, daily range): BP systolic 130–156; BP diastolic 59–74
[2019-09-01] MEDS: ALBUTEROL 6.7GM HFA INHALER ORI SCH ×4 (06:00→17:34)
[2019-09-01] MEDS: BLOOD SUGAR DIAGNOSTIC STRIP TEST SCH ×4 (07:33→21:00)
[2019-09-01 08:06] LABS: BASOPHILS % 0.1 % (0.0-2.0); HEMATOCRIT. 33.8 % (36.0-48.0); HEMOGLOBIN. 11.5 g/dL (12.0-16.0); MEAN CORPUSCULAR HEMOGLOBIN 29.9 pg (28.0-32.0); MEAN CORPUSCULAR VOLUME 87.8 fL (81.0-99.0); MEAN PLATELET VOLUME 8.2 fl (7.4-10.4); MONOCYTES % 13.6 % (2.0-8.0); NEUTROPHILS % 71.3 % (40.0-76.0); PLATELET 216 x1000/uL (130-400); RED BLOOD CELL COUNT 3.85 mill/uL (4.2-5.4); RED CELL DISTRIBUTION WIDTH 13.8 % (11.6-14.6)
[2019-09-01 08:20] LABS: CHLORIDE 108 mEq/L (98-107)
[2019-09-01] MEDS: INSULIN LISPRO (LOW DOSE) 100 UNITS/ML SUBCUT SCH ×4 (08:43→21:26)
[2019-09-01] MEDS: GLIMEPIRIDE 1MG TABLET PO SCH (08:43)
[2019-09-01] MEDS: MAGNESIUM GLUCONATE 500MG TABLET PO SCH (08:44)
[2019-09-01] MEDS: LOSARTAN POTASSIUM 25 MG TABLET PO SCH (08:44)
[2019-09-01] MEDS: ASPIRIN 325MG EC TABLET PO SCH (08:44)
[2019-09-01] MEDS: CLOPIDOGREL 75MG TABLET PO SCH (08:44)
[2019-09-01] MEDS: RISPERIDONE 0.25MG TABLET PO SCH ×2 (08:44→17:33)
[2019-09-01] MEDS: DEXAMETHASONE 4MG TABLET PO SCH (08:44)
[2019-09-01] MEDS: AMLODIPINE 5MG TABLET PO SCH ×2 (08:44→20:03)
[2019-09-01] MEDS: REMDESIVIR 100 MG in SODIUM CHLORIDE 0.9% 250 ML IV SCH (13:14)
[2019-09-01] MEDS: ENOXAPARIN 40MG/0.4ML SYR SUBCUT SCH (17:34)
[2019-09-02] VITALS: BP 132/65
[2019-09-02 04:00] VITALS: BP 140/64
[2019-09-02] MEDS: ALBUTEROL 6.7GM HFA INHALER ORI SCH ×3 (06:00→17:08)
[2019-09-02 06:56] LABS: CHLORIDE 112 mEq/L (98-107)
[2019-09-02 07:12] LABS: HEMATOCRIT. 33.5 % (36.0-48.0); HEMOGLOBIN. 11.6 g/dL (12.0-16.0); MEAN CORPUSCULAR HEMOGLOBIN 30.3 pg (28.0-32.0); MEAN CORPUSCULAR VOLUME 87.3 fL (81.0-99.0); PLATELET 254 x1000/uL (130-400); RED BLOOD CELL COUNT 3.84 mill/uL (4.2-5.4); RED CELL DISTRIBUTION WIDTH 13.6 % (11.6-14.6)
[2019-09-02] MEDS: BLOOD SUGAR DIAGNOSTIC STRIP TEST SCH ×4 (07:50→20:23)
[2019-09-02 08:00] VITALS: BP 100/62
[2019-09-02] MEDS: ASPIRIN 325MG EC TABLET PO SCH (09:11)
[2019-09-02] MEDS: MAGNESIUM GLUCONATE 500MG TABLET PO SCH (09:11)
[2019-09-02] MEDS: DEXAMETHASONE 4MG TABLET PO SCH (09:12)
[2019-09-02] MEDS: RISPERIDONE 0.25MG TABLET PO SCH ×2 (09:12→17:45)
[2019-09-02] MEDS: CLOPIDOGREL 75MG TABLET PO SCH (09:12)
[2019-09-02] MEDS: GLIMEPIRIDE 1MG TABLET PO SCH (09:12)
[2019-09-02] MEDS: LOSARTAN POTASSIUM 25 MG TABLET PO SCH (09:12)
[2019-09-02] MEDS: AMLODIPINE 5MG TABLET PO SCH ×2 (09:13→21:12)
[2019-09-02] MEDS: INSULIN LISPRO (LOW DOSE) 100 UNITS/ML SUBCUT SCH ×4 (09:13→21:13)
[2019-09-02 12:00] VITALS: BP 129/72
[2019-09-02] MEDS: REMDESIVIR 100 MG in SODIUM CHLORIDE 0.9% 250 ML IV SCH (13:54)
[2019-09-02 16:00] VITALS: BP 100/61
[2019-09-02] MEDS: ENOXAPARIN 40MG/0.4ML SYR SUBCUT SCH (17:46)
[2019-09-02 20:30] VITALS: BP 148/59
[2019-09-03] VITALS: BP 150/57
[2019-09-03] MEDS: ALBUTEROL 6.7GM HFA INHALER ORI SCH ×5 (00:51→23:48)
[2019-09-03 04:00] VITALS: BP 153/79
[2019-09-03 05:25] LABS: CHLORIDE 112 mEq/L (98-107)
[2019-09-03 06:03] LABS: HEMATOCRIT. 33.7 % (36.0-48.0); HEMOGLOBIN. 11.7 g/dL (12.0-16.0); MEAN CORPUSCULAR HEMOGLOBIN 30.4 pg (28.0-32.0); MEAN CORPUSCULAR VOLUME 87.8 fL (81.0-99.0); MEAN PLATELET VOLUME 7.8 fl (7.4-10.4); PLATELET 302 x1000/uL (130-400); RED BLOOD CELL COUNT 3.84 mill/uL (4.2-5.4)
[2019-09-03] MEDS: BLOOD SUGAR DIAGNOSTIC STRIP TEST SCH ×4 (06:45→21:03)
[2019-09-03] MEDS: GLIMEPIRIDE 1MG TABLET PO SCH (07:57)
[2019-09-03 08:00] VITALS: BP 158/69
[2019-09-03] MEDS: RISPERIDONE 0.25MG TABLET PO SCH ×2 (08:39→17:38)
[2019-09-03] MEDS: ASPIRIN 325MG EC TABLET PO SCH (08:39)
[2019-09-03] MEDS: DEXAMETHASONE 4MG TABLET PO SCH (08:39)
[2019-09-03] MEDS: LOSARTAN POTASSIUM 25 MG TABLET PO SCH (08:39)
[2019-09-03] MEDS: MAGNESIUM GLUCONATE 500MG TABLET PO SCH (08:39)
[2019-09-03] MEDS: CLOPIDOGREL 75MG TABLET PO SCH (08:39)
[2019-09-03] MEDS: AMLODIPINE 5MG TABLET PO SCH ×2 (08:40→21:03)
[2019-09-03] MEDS: INSULIN LISPRO (LOW DOSE) 100 UNITS/ML SUBCUT SCH ×2 (08:43→13:18)
[2019-09-03 10:12] LABS: PLATELET ESTIMATE NORMAL
[2019-09-03 12:07] VITALS: BP 110/63
[2019-09-03 13:04] LABS: BG CARBOXYHEMOGLOBIN 0.3 % (0.5-1.5); BG DEOXYHEMOGLOBIN 7.9 % (0.0-5.0); BG FRACTION INSPIRED OXYGEN 21; BG HCO3 ACT 21.3 mmol/L (22.0-26.0); BG METHEMOGLOBIN 0.3 % (0.0-1.5); BG OXYGEN SATURATION 92.1 % (92.0-98.5); BG OXYHEMOGLOBIN 91.5 % (94.0-97.0); BG PCO2 28.7 mmHg (35.0-45.0); BG PH 7.489 (7.350-7.450); BG PO2 60.4 mmHg (75.0-100.0); BG SAMPLE SITE RIGHT BRACHIAL; BG VENT MODE ROOM AIR
[2019-09-03] MEDS: REMDESIVIR 100 MG in SODIUM CHLORIDE 0.9% 250 ML IV SCH (13:16)
[2019-09-03 14:31] LABS: PLATELET ESTIMATE NORMAL
[2019-09-03 16:00] VITALS: BP 155/63
[2019-09-03] MEDS: ENOXAPARIN 40MG/0.4ML SYR SUBCUT SCH (17:38)
[2019-09-03] MEDS ORDERED: INSULIN LISPRO 100 UNITS/ML SUBCUT SCH ×2 (18:10)
[2019-09-03 20:00] VITALS: BP 169/68
[2019-09-03] MEDS: INSULIN LISPRO 100 UNITS/ML SUBCUT SCH (21:31)
[2019-09-04] VITALS (8 sets, daily range): BP systolic 144–175; BP diastolic 59–75
[2019-09-04] MEDS: BLOOD SUGAR DIAGNOSTIC STRIP TEST SCH ×4 (06:19→21:40)
[2019-09-04] MEDS: ALBUTEROL 6.7GM HFA INHALER ORI SCH ×3 (06:20→17:31)
[2019-09-04] MEDS: INSULIN LISPRO 100 UNITS/ML SUBCUT SCH ×4 (06:24→21:40)
[2019-09-04 07:26] LABS: HEMATOCRIT. 33.5 % (36.0-48.0); HEMOGLOBIN. 11.7 g/dL (12.0-16.0); LYMPHOCYTES % 8.9 % (20.0-50.0); MEAN CORPUSCULAR HEMOGLOBIN 30.3 pg (28.0-32.0); MEAN CORPUSCULAR VOLUME 86.7 fL (81.0-99.0); MEAN PLATELET VOLUME 7.9 fl (7.4-10.4); MONOCYTES % 8.8 % (2.0-8.0); NEUTROPHILS % 82.3 % (40.0-76.0); PLATELET 359 x1000/uL (130-400); RED BLOOD CELL COUNT 3.87 mill/uL (4.2-5.4); RED CELL DISTRIBUTION WIDTH 13.8 % (11.6-14.6)
[2019-09-04 07:43] LABS: CHLORIDE 116 mEq/L (98-107)
[2019-09-04] MEDS ORDERED: INSULIN LISPRO 100 UNITS/ML SUBCUT SCH (08:10)
[2019-09-04] MEDS: MAGNESIUM GLUCONATE 500MG TABLET PO SCH (08:12)
[2019-09-04] MEDS: ASPIRIN 325MG EC TABLET PO SCH (08:12)
[2019-09-04] MEDS: GLIMEPIRIDE 1MG TABLET PO SCH (08:12)
[2019-09-04] MEDS: CLOPIDOGREL 75MG TABLET PO SCH (08:12)
[2019-09-04] MEDS: RISPERIDONE 0.25MG TABLET PO SCH ×2 (08:12→17:12)
[2019-09-04] MEDS: AMLODIPINE 5MG TABLET PO SCH ×2 (08:13→21:38)
[2019-09-04] MEDS: LOSARTAN POTASSIUM 25 MG TABLET PO SCH (08:13)
[2019-09-04] MEDS: CLONIDINE 0.1MG TABLET PO PRN (10:53)
[2019-09-04] MEDS: ENOXAPARIN 40MG/0.4ML SYR SUBCUT SCH (17:12)
[2019-09-05] VITALS: BP 138/50
[2019-09-05] MEDS: ALBUTEROL 6.7GM HFA INHALER ORI SCH ×4 (00:18→18:25)
[2019-09-05 04:00] VITALS: BP 157/54
[2019-09-05] MEDS: BLOOD SUGAR DIAGNOSTIC STRIP TEST SCH ×3 (06:43→17:56)
[2019-09-05] MEDS: GLIMEPIRIDE 1MG TABLET PO SCH (06:43)
[2019-09-05] MEDS: INSULIN LISPRO 100 UNITS/ML SUBCUT SCH ×3 (07:29→18:20)
[2019-09-05 08:00] VITALS: BP 162/74
[2019-09-05] MEDS: MAGNESIUM GLUCONATE 500MG TABLET PO SCH (08:07)
[2019-09-05] MEDS: CLOPIDOGREL 75MG TABLET PO SCH (08:07)
[2019-09-05] MEDS: ASPIRIN 325MG EC TABLET PO SCH (08:07)
[2019-09-05] MEDS: AMLODIPINE 5MG TABLET PO SCH (08:07)
[2019-09-05] MEDS: RISPERIDONE 0.25MG TABLET PO SCH ×2 (08:07→17:08)
[2019-09-05] MEDS ORDERED: LOSARTAN POTASSIUM 50 MG TABLET PO SCH ×2 (09:00→21:00)
[2019-09-05 12:00] VITALS: BP 159/61
[2019-09-05] MEDS ORDERED: LOSA50TA3 PO (15:45)
[2019-09-05] MEDS ORDERED: AMLO5TAB88 PO (15:45)
[2019-09-05 15:58] VITALS: BP 139/53
[2019-09-05 16:00] VITALS: BP 139/53
[2019-09-05] MEDS: ENOXAPARIN 40MG/0.4ML SYR SUBCUT SCH (17:09)
== END 2019-09-05 19:30 | disposition home or self-care (01) | DRG 871 ==
LOC: ER 07:27 → 7WST 10:18 → ENRESERV 19:08
PROVIDERS: ADMIT Internal Medicine; ATTEND Internal Medicine
DX: A41.89 Other specified sepsis (principal); U07.1 COVID-19; G93.41 Metabolic encephalopathy; J96.01 Acute respiratory failure with hypoxia; J12.89 Other viral pneumonia; N39.0 Urinary tract infection, site not specified; D68.59 Other primary thrombophilia; I69.354 Hemiplegia and hemiparesis following cerebral infarction affecting left non-dominant side; E11.649 Type 2 diabetes mellitus with hypoglycemia without coma; K76.1 Chronic passive congestion of liver; E83.42 Hypomagnesemia; E87.6 Hypokalemia; J20.8 Acute bronchitis due to other specified organisms; F03.90 Unspecified dementia, unspecified severity, without behavioral disturbance, psychotic disturbance, mood disturbance, and anxiety; F32.9 Major depressive disorder, single episode, unspecified; E78.5 Hyperlipidemia, unspecified; E03.9 Hypothyroidism, unspecified; E11.51 Type 2 diabetes mellitus with diabetic peripheral angiopathy without gangrene; B96.20 Unspecified Escherichia coli [E. coli] as the cause of diseases classified elsewhere; I11.0 Hypertensive heart disease with heart failure; I50.9 Heart failure, unspecified; R13.10 Dysphagia, unspecified; D72.810 Lymphocytopenia; Z79.82 Long term (current) use of aspirin; Z79.02 Long term (current) use of antithrombotics/antiplatelets
CPT/HCPCS: 36415; 36600; 71045; 80048; 80053; 80061; 80202; 81003; 82375; 82550; 82553; 82728; 82805; 82962; 83036; 83605; 83615; 83735; 83880; 84100; 84145; 84443; 84484; 85025; 85379; 85384; 86141; 87077; 87186; 93005; 96365; 99291; J0456; J0696; J1650; J1815; J3370; J7050; J7060; J8540; Q9957; U0003-CS

== ENCOUNTER 2019-09-11 22:11 | Emergency (ER) | payer MEDICARE, MEDICAID ==
[~2019-09-11] VITALS: Ht 165.1 cm; Wt 82.0 kg
[~2019-09-11 22:11] MED LIST changes: +AMLO5TAB88 PO; +LOSA50TA3 PO
[2019-09-11 22:14] VITALS: BP 0/0
[2019-09-11] MEDS ORDERED: EPINEPHRINE 0.1MG/ML (1:10,000) 10ML SYR ONE (22:19)
== END 2019-09-11 22:12 | disposition expired ==
LOC: ER 22:11
DX: U07.1 COVID-19 (principal); I46.9 Cardiac arrest, cause unspecified; F03.90 Unspecified dementia, unspecified severity, without behavioral disturbance, psychotic disturbance, mood disturbance, and anxiety; E11.9 Type 2 diabetes mellitus without complications; I10 Essential (primary) hypertension; Z86.73 Personal history of transient ischemic attack (TIA), and cerebral infarction without residual deficits; Z79.82 Long term (current) use of aspirin; Z79.899 Other long term (current) drug therapy
CPT/HCPCS: 31500; 92950; 94002; 99285; J3490